=== PATIENT | female | born 1980 | race Caucasian/White ===

== ENCOUNTER 2019-01-27 08:04 | Day surgery (SDC) | payer BC ==
[2019-01-24 16:25] LABS: BASOPHILS # (AUTO) 0.1 X10'3 (0-0.2); BASOPHILS % (AUTO) 0.9 % (0-1); EOSINOPHILS # (AUTO) 0.2 X10'3 (0-0.9); EOSINOPHILS % (AUTO) 3.3 % (0-6); LYMPHOCYTES # (AUTO) 2.6 X10'3 (1.1-4.8); LYMPHOCYTES % (AUTO) 37.6 % (21-51); MEAN CORPUSCULAR HEMOGLOBIN 31.5 PG (27.0-31.0); MEAN CORPUSCULAR HGB CONC 34.7 g/dL (33.0-36.5); MEAN CORPUSCULAR VOLUME 90.7 FL (78-98); MEAN PLATELET VOLUME 8.7 FL (7.4-10.4); MONOCYTES # (AUTO) 0.4 X10'3 (0-0.9); MONOCYTES % (AUTO) 5.7 % (2-12); NEUTROPHILS # (AUTO) 3.6 X10'3 (1.8-7.7); NEUTROPHILS % (AUTO) 52.5 % (42-75); PRE OP HEMATOCRIT 41.3 % (35.0-45.0); PRE OP HEMOGLOBIN 14.3 g/dL (12.0-16.0); PRE OP PLATELET COUNT 241 X10'3 (140-440); RED BLOOD COUNT 4.55 X10'6 (4.20-5.60); RED CELL DISTRIBUTION WIDTH 13.8 % (11.5-14.5)
[2019-01-24 16:38] LABS: ALBUMIN 3.6 G/DL (3.4-5.0); ALKALINE PHOSPHATASE 95 IU/L (46-116); BLOOD UREA NITROGEN 14 MG/DL (7-18); BUN/CREATININE RATIO 16.1 (6.6-38.0); CALCIUM 8.8 MG/DL (8.5-10.1); CHLORIDE 103 MMOL/L (99-107); CREATININE 0.87 MG/DL (0.40-0.90); PRE OP ALT 23 U/L (30-65); PRE OP ANION GAP 8 (8-16); PRE OP AST 17 U/L (10-37); PRE OP BILIRUB, TOTAL 0.3 MG/DL (0.0-1.0); PRE OP GLUCOSE 83 MG/DL (70-104); PRE OP SODIUM 139 MMOL/L (135-145); TOTAL CARBON DIOXIDE 27.7 MMOL/L (24-32); TOTAL PROTEIN 7.3 G/DL (6.4-8.2); eGFR 74 ML/MIN
[2019-01-24 16:39] LABS: CLARITY,URINE CLEAR (Clear); COLOR,URINE STRAW (Yellow); GLUCOSE, URINE NEGATIVE (Neg); KETONES,URINE NEGATIVE (Neg); LEUKOCYTE ESTERASE ,URINE SMALL (Neg); NITRITES, URINE NEGATIVE (Neg); OCCULT BLOOD,URINE NEGATIVE (Neg); PROTEIN,URINE NEGATIVE (Neg); UROBILINOGEN,URINE 0.2 E.U/dL (0.2-1.0)
[2019-01-24 16:40] LABS: PRE OP POTASSIUM 3.3 MMOL/L (3.4-5.1)
[2019-01-24 16:41] LABS: UA COLLECTION TYPE CLN CATCH MIDSTREAM
[2019-01-24 16:42] LABS: HCG SERUM QL NEGATIVE
[2019-01-24 16:47] LABS: MUCUS STRANDS NONE SEEN /LPF (Neg); SQUAMOUS EPITHELIAL CELL,UR MODERATE /LPF (FEW)
[2019-01-24 16:48] LABS: BACTERIA,URINE FEW /HPF (Neg); RBC,URINE NONE SEEN /HPF (0-2); TRANSITIONAL EPI CELLS,URINE FEW /HPF; WBC,URINE 0-4 /HPF (0-4)
[2019-01-27] VITALS (11 sets, daily range): BP systolic 94–134; BP diastolic 52–82
[~2019-01-27] VITALS: Ht 162.6 cm; Wt 67.8 kg
[~2019-01-27 08:04] MED LIST: CETI-102 PO; FINA5TAB11 PO; FLUT16SP2 BOTHNARES; PROGESTERONE; TESTOSTERONE IMPLANT; famotidine 20mg tablet PO ONE; meperidine/PF 25mg/ml syringe IV PRN; morphine 4 MG/ML inj SYRINge IV PRN; ondansetron/PF 4mg/2ml inj IV PRN; proCHLORperazine 10 MG/2 ml inj IV PRN; ringers solution, lacted 1,000 ML IV SCH
[2019-01-27 08:50] LABS: ISTAT HGB 14.6 g/dl (12.0-16.0); ISTAT IONIZED CALCIUM 1.23 mmol/L (1.03-1.32)
[2019-01-27] MEDS ORDERED: oxyCODONE/APAP 5-325mg tablet PO PRN ×2 (09:00)
[2019-01-27] MEDS ORDERED: ROPIVAcaine 0.5% (5mg/ml) 30ml vial ONE (09:25)
[2019-01-27] MEDS ORDERED: neostigmine methylsulfate 1 MG/ML 10ml vial ONE (10:06)
[2019-01-27] MEDS ORDERED: sevoflurane 250ml liquid IH ONE (10:06)
[2019-01-27] MEDS ORDERED: glycopyrrolate 0.2mg/ml inj ONE (10:06)
[2019-01-27] MEDS ORDERED: dexamethasone sod phosphate 10mg/ml inj ONE (10:06)
[2019-01-27] MEDS ORDERED: rocuronium 10mg/ml inj IV ONE (10:06)
[2019-01-27] MEDS ORDERED: fentaNYL/PF 50MCG/1 ML 2ML syringe ONE (10:07)
[2019-01-27] MEDS ORDERED: midazolam 2 mg/2 ml injection ONE (10:07)
[2019-01-27] MEDS ORDERED: propofol inj 20 ML IV ONE (10:09)
[2019-01-27] MEDS ORDERED: LIDOcaine 2% (20mg/ml) 5ml vial ONE (10:09)
[2019-01-27] MEDS ORDERED: ondansetron/PF 4mg/2ml inj ONE (10:17)
[2019-01-27] MEDS ORDERED: ketorolac trometh. 30mg/ml inj. ONE (10:32)
[2019-01-27] MEDS ORDERED: acetaminophen 1,000mg/100ml IV 100 ML IV ONE (10:36)
--- NOTE | 2019-01-27 10:52 | NUR ---
Received from OR via [facility] , accompanied by Anesthesiologist DAYLIN and report given by Anesthesiolgist. PATIENT WITH 2 LAP SITES TO ABDOMEN, BOTH CDI. NILAM PAD IN PLACE. VSS AT THIS TIME. SANTOS NIELSEN APPLIED. Addendum: 01/27/19 at 1111 by Elvis Lindsay RN, RN Amended: Links added.
[2019-01-27] MEDS ORDERED: ibuprofen tablet 400 MG TABLET PO ONE (12:25)
--- NOTE | 2019-01-27 12:32 | NUR ---
CALLED MD RENTERIA BACK [facility]. ORDERS FOR IBUPROFEN RECEIVED PATIENT DOES NOT WISH FOR NARCOTICS. HOWEVER PHARMACY CALLED AND STATED THAT PATIENT CANNOT GET THIS MED 2' ADMINISTRATION OF TORADOL IN THE OR. ALL DC CRITERIA HAS BEEN MET. IV TAKEN OUT WITHOUT COMPLICATIONS. ALL INSTRUCTIONS COVERED AND ALL QUESTIONS ANSWERED. DRESSINGS CDI. OUT VIA WHEELCHAIR TO PERSONAL VEHICLE WHERE PATIENT WAS SECURED IN AND DRIVEN HOME BY FRIEND PRUDENCE. DRAINAGE SITES ARE CDI. NEW PAD GIVEN TO PATIENT AND DRESSED WITH ASSIST OF MICHELA JIMENEZ. Addendum: 01/27/19 at 1238 by Elvis Lindsay RN, RN Amended: Links added.
== END 2019-01-27 12:32 | disposition home or self-care (01) ==
LOC: PAS 08:04
PROVIDERS: ATTEND Obstetrics & Gynecology
DX: Z30.2 Encounter for sterilization (principal); J45.909 Unspecified asthma, uncomplicated; F32.9 Major depressive disorder, single episode, unspecified; Z79.899 Other long term (current) drug therapy
CPT/HCPCS: 36415; 58671; 80047; 80053; 81001; 84703; 85025; 86885; 86900; 86901; 87088; A4264; J0131; J1885; J2001; J2250; J2405; J2704; J3010; J7120; A6250; J1100; J2710; J2795; J3490